=== PATIENT | male | born 1965 | race American Indian/Alaskan Native ===

== ENCOUNTER 2017-03-17 07:12 | Day surgery (SDC) | payer OTHER ==
[~2017-03-17 07:12] MED LIST: Sodium Chloride 0.9% 10 ML Syringe FLUSH PRN
[2017-03-17] MEDS ORDERED: Lidocaine 1% 30 ML SDV ONE (07:39)
[2017-03-17] MEDS ORDERED: Bupivacaine 0.5% 10 ML SDV ONE (07:39)
[2017-03-17] MEDS ORDERED: Sodium Chloride 0.9% 10 ML Syringe FLUSH PRN (08:00)
[2017-03-17] MEDS ORDERED: Lactated Ringers 1,000 ML IV SCH (08:00)
[2017-03-17] MEDS ORDERED: fentaNYL 100 MCG/2 ML SDV ONE ×2 (08:03→08:04)
[2017-03-17] MEDS ORDERED: Succinylcholine 200 MG/10 ML MDV ONE (08:03)
[2017-03-17] MEDS ORDERED: Propofol 200 MG/20 ML SDV ONE (08:03)
[2017-03-17] MEDS ORDERED: Midazolam 1 MG/ML 2 ML SDV ONE (08:04)
[2017-03-17] MEDS ORDERED: Ondansetron 4 MG/2 ML SDV ONE (08:05)
[2017-03-17] MEDS ORDERED: Ketorolac 30 MG/ML SDV ONE (08:05)
[2017-03-17] MEDS ORDERED: Lidocaine 2% 20 ML MDV ONE (08:06)
[2017-03-17] MEDS ORDERED: Glycopyrrolate 0.2 MG/ML 2 ML SDV ONE (08:21)
[2017-03-17] MEDS ORDERED: Lidocaine 1% 30 ML SDV INJECT ONE ×3 (08:35→09:58)
[2017-03-17] MEDS ORDERED: Bupivacaine 0.5% 10 ML SDV INJECT ONE ×3 (08:35→09:58)
[2017-03-17 11:48] VITALS: BP 121/85
--- NOTE | 2017-03-17 12:56 | PCM.OPNOTE ---
- General Post-Op/Procedure Note Date of Surgery/Procedure: 03/17/17 Operative Procedure(s): Right open plantar fasciectomy Pre Op Diagnosis: Left painful plantar fasciitis Post-Op Diagnosis: sarahy Anesthesia Technique: General LMA Primary Surgeon: Madeline Elise Anesthesia Provider: Dre Roberson EBL in mLs: 5 Complications: none Condition: Good Free Text/Narrative:: Intake & Output 03/16/17 03/17/17 03/17/17 22:59 06:59 14:59 Intake Total 825 Balance 825 Pt tolerated procedure well and was transported to pacu with vss and vascular status intact to [facility]. Placed in cam boot due to psoriasis rash on ankle. TT 22 mins.
[2017-03-17] MEDS ORDERED: Propofol 200 MG/20 ML SDV IV ONE (14:52)
[2017-03-17] MEDS ORDERED: Ketorolac 30 MG/ML SDV IVPUSH ONE (14:52)
[2017-03-17] MEDS ORDERED: Ondansetron 4 MG/2 ML SDV IV ONE (14:52)
[2017-03-17] MEDS ORDERED: Midazolam 1 MG/ML 2 ML SDV IV ONE (14:52)
[2017-03-17] MEDS ORDERED: fentaNYL 100 MCG/2 ML SDV IV ONE (14:52)
[2017-03-17] MEDS ORDERED: Glycopyrrolate 0.2 MG/ML 2 ML SDV IV ONE (14:52)
--- NOTE | 2017-03-17 18:54 | OR ---
DATE: 03/17/2017 PREOPERATIVE DIAGNOSIS: Left foot plantar fasciitis. POSTOPERATIVE DIAGNOSIS: Left foot plantar fasciitis. PROCEDURE PERFORMED: Left foot open plantar fasciectomy. ANESTHESIA: LMA with preoperative local block of 10 mL 1:1 mixture of 1% lidocaine plain and 0.5% Marcaine plain. TOURNIQUET TIME: 22 minutes. Pneumatic ankle tourniquet. ESTIMATED BLOOD LOSS: Minimal. SPECIMEN: None. COMPLICATIONS: None. INDICATIONS: Richi is a 52-year-old male, who returns for chronic pain in his left heel. I have seen him multiple times for this issue, I did do an injection back in October for the area which he reports only helped for a couple of weeks and then the pain returned. He is on his feet all day, holding heavy things on cement and working on ladders. He had also done physical therapy, we tried over- the-counter inserts, gel cushions, Medrol Dosepak with no relief. He has also been stretching trying to rest that foot. He has not had any relief for that. His pain is 8/10 at worst. It started last over about a year and a half ago and has been progressively worsening. X-rays of the foot reveals very small bone spur at the plantar heel, no signs of fracture. The patient voiced good understanding of proposed procedure and possible complications, elects to have surgery at this time. DESCRIPTION OF PROCEDURE: The patient was taken to the operating room, lying in supine position. After adequate anesthesia induction as described above, the left foot was prepped and draped in usual sterile fashion. A pneumatic ankle tourniquet was inflated to 225 mmHg. Attention was then directed to the left foot plantar aspect, just distal to the calcaneal fat pad where an approximately 3 cm linear incision was made at this aspect to gain access to the central and medial band of the plantar fascia. Sharp and blunt dissection was performed down to the level of the plantar fascia band. An approximately 1 cm2 section of the band was resected from the foot. It was noted to be severely thickened with scar tissue. Inspection of the site revealed no further tightness of the plantar fascia in this area. The area was then flushed with copious amounts of sterile saline. Deep closure was completed with 3-0 Vicryl, and skin closure was completed with 4-0 nylon. The area was dressed with Xeroform, fluffs, Kerlix, and Webril. He was placed into a Cam boot due to him having psoriasis flare up on his ankle. He will just have to keep that Cam boot on at all times unless he needs to apply some lotion to the ankle. Total tourniquet time was 22 minutes. He tolerated anesthesia and the procedure well, and left to recovery with vital signs stable, in good condition, with vascular status intact to the foot. He was discharged home when he met hospital discharge requirements. [facility] /[id number]
== END 2017-03-17 11:00 | disposition home or self-care (01) ==
LOC: DL.SDS 07:12
PROVIDERS: ATTEND Podiatrist
DX: M72.2 Plantar fascial fibromatosis (principal); R73.03 Prediabetes; I10 Essential (primary) hypertension
CPT/HCPCS: 28060; J7120; J1885; J2250; J2405; J2704; J3010; J3490

== ENCOUNTER 2017-04-28 05:48 | Day surgery (SDC) | payer OTHER ==
[2017-04-28] MEDS ORDERED: Midazolam 1 MG/ML 2 ML SDV ONE (06:15)
[2017-04-28] MEDS ORDERED: fentaNYL 100 MCG/2 ML SDV ONE (06:16)
[2017-04-28] MEDS ORDERED: fentaNYL 100 MCG/2 ML SDV IV ONE ×5 (06:54→15:15)
[2017-04-28] MEDS ORDERED: Midazolam 1 MG/ML 2 ML SDV IV ONE ×7 (06:56→15:15)
[2017-04-28] MEDS ORDERED: Sodium Chloride 0.9% 10 ML Syringe FLUSH PRN (07:00)
[2017-04-28] MEDS ORDERED: Dextrose 5%-0.45% NaCl 1,000 ML IV SCH (07:00)
[2017-04-28 09:30] VITALS: BP 130/82
--- NOTE | 2017-04-28 11:12 | OR ---
DATE: 04/28/2017 PROCEDURE: Total colonoscopy, NBI, and multiple cold snare polypectomies. INSTRUMENT USED: CF-H180AL Olympus video colonoscope. Olympus disposable distal attachment. PREMEDICATIONS: Fentanyl 150 mcg intravenous, Versed 4 mg intravenous. The procedure was done under pulse oximetry, BP recording, and monitor tech. INDICATION: The patient with rectal bleeding. Colonoscopic examination is done for detection of any polypoid lesions and removal, endoscopic hemostasis therapy if needed. Initial rectal exam was unremarkable. Rigid anoscopy was normal. DESCRIPTION OF PROCEDURE: The colonoscope was passed with ease up to the ileocecal area, photographs were taken of the cecum identified by landmarks of appendiceal orifice and double-bulged ileocecal folds. The examination was compromised in quite a few areas due to the presence of adherent solid fecal material that could not be aspirated clear. No bleeding was noted from any of the visualized areas at the commencement of the examination. No stricture. No vascular ectasia. No large isolated ulcerations seen. No evidence of diffuse inflammatory bowel disease in the form of friability, contact bleeding, or ulcerations. Probing the proximal sides of folds and flexures, using adequate distention and clearing of the stool material, withdrawal of the scope was made. In the distal descending colon, 2 polyps were noted, photographs were taken of the larger polyp, 5 mm sized, NBI views were obtained. Cold snare polypectomies were done of the 2 polyps visualized. The tissues were collected and sent for histopathology. No bleeding was noted from any of the visualized areas at the completion of examination. IMPRESSION: Multiple colonic polyps. The patient tolerated the procedure well. [facility] /[id number]
--- NOTE | 2017-04-28 11:23 | LETTER ---
04/28/2017 Yamile Schaffer MD [facility] [address] [place] [address] RE: RICHI EAST : [address] Schaffer: Mr. Richi East had colonoscopic examination done this morning and he tolerated the procedure well. I herewith send a copy of the endoscopy note and photographs for your review. Thank you. Sincerely, [facility] /[id number]
== END 2017-04-28 09:15 | disposition home or self-care (01) ==
LOC: DL.ENDO 05:48
PROVIDERS: ATTEND Internal Medicine Gastroenterology
DX: D12.4 Benign neoplasm of descending colon (principal); I10 Essential (primary) hypertension; E66.09 Other obesity due to excess calories; M96.1 Postlaminectomy syndrome, not elsewhere classified; Z98.890 Other specified postprocedural states; Z79.82 Long term (current) use of aspirin; Z79.899 Other long term (current) drug therapy
CPT/HCPCS: 45385; J2250; J3010; J7042

== ENCOUNTER 2017-05-17 06:58 | Day surgery (SDC) | payer OTHER ==
[~2017-05-17 06:58] MED LIST changes: +Dextrose 5%-0.45% NaCl 1,000 ML IV SCH; +Midazolam 1 MG/ML 2 ML SDV ONE; +fentaNYL 100 MCG/2 ML SDV ONE
[2017-05-17] MEDS ORDERED: fentaNYL 100 MCG/2 ML SDV IV ONE ×5 (08:03→14:43)
[2017-05-17] MEDS ORDERED: Midazolam 1 MG/ML 2 ML SDV IV ONE ×7 (08:05→14:43)
[2017-05-17 10:07] VITALS: BP 134/72
--- NOTE | 2017-05-17 13:43 | OR ---
DATE: 05/17/2017 PROCEDURE: Total colonoscopy. INSTRUMENT USED: CF-H180AL Olympus video colonoscope. PREMEDICATIONS: Fentanyl 150 mcg intravenous, Versed 4 mg intravenous. The procedure was done under pulse oximetry, BP recording, and marketing representative. INDICATION: The patient with previous colonic adenoma and inadequate study before related to large amount of fecal material. Colonoscopic examination is done for detection of any polypoid lesions and removal, endoscopic hemostasis therapy if needed. Initial rectal exam was unremarkable. Rigid anoscopy showed small internal hemorrhoids without bleeding from them. DESCRIPTON OF PROCEDURE: The colonoscope was passed with ease up to the ileocecal area, photographs were taken of the normal-appearing cecum, identified by appendiceal orifice and double-bulged ileocecal folds. No bleeding was noted from any of the visualized areas at the commencement of the examination. No stricture. No vascular ectasia. No large isolated ulceration seen. No evidence of diffuse inflammatory bowel disease in the form of friability, contact bleeding, or ulcerations. No polyp or tumor mass identified. Probing the proximal sides of folds and flexures using adequate distention and clearing of the stool material, withdrawal of the scope was made. Cecum to rectum time over 6 minutes. No bleeding was noted from any of the visualized areas at the completion of examination. IMPRESSION: Internal hemorrhoids. The patient tolerated the procedure well. [facility] /[id number]
--- NOTE | 2017-05-17 14:40 | LETTER ---
05/17/2017 Yamile Schaffer MD [facility] [address] [place] [address] RE: RICHI EAST : [address] Schaffer: Mr. Richi East had colonoscopic examination this morning, and he tolerated the procedure well. I herewith send a copy of the endoscopy note and photographs for your review. Thank you. Sincerely, [facility] /[id number]
== END 2017-05-17 10:00 | disposition home or self-care (01) ==
LOC: DL.ENDO 06:58
PROVIDERS: ATTEND Internal Medicine Gastroenterology
DX: Z12.11 Encounter for screening for malignant neoplasm of colon (principal); K64.8 Other hemorrhoids; Z85.038 Personal history of other malignant neoplasm of large intestine; I10 Essential (primary) hypertension; E66.9 Obesity, unspecified; Z79.82 Long term (current) use of aspirin; Z79.899 Other long term (current) drug therapy; Z98.890 Other specified postprocedural states
CPT/HCPCS: 45378; J2250; J3010; J7042

== ENCOUNTER 2019-03-29 06:45 | Day surgery (SDC) | payer BC, OTHER ==
[~2019-03-29 06:45] MED LIST changes: -Dextrose 5%-0.45% NaCl 1,000 ML IV SCH; +Lactated Ringers 1,000 ML IV SCH; -Midazolam 1 MG/ML 2 ML SDV ONE; -fentaNYL 100 MCG/2 ML SDV ONE
[2019-03-29] MEDS ORDERED: Propofol 200 MG/20 ML SDV IV ONE (06:46)
[2019-03-29] MEDS ORDERED: Ondansetron 4 MG/2 ML SDV IV ONE (06:46)
[2019-03-29] MEDS ORDERED: Dexamethasone 4 MG/ML SDV IV ONE (06:46)
[2019-03-29] MEDS ORDERED: Midazolam 1 MG/ML 2 ML SDV IV ONE (06:46)
[2019-03-29] MEDS ORDERED: Bupivacaine 0.5% 30 ML SDV INJECT ONE ×4 (06:46→08:57)
[2019-03-29] MEDS ORDERED: Lidocaine 1% 30 ML SDV INJECT ONE ×4 (06:46→08:57)
[2019-03-29] MEDS ORDERED: Ketorolac 30 MG/ML SDV IVPUSH ONE (06:46)
[2019-03-29] MEDS ORDERED: fentaNYL 100 MCG/2 ML SDV IV ONE (06:46)
[2019-03-29] MEDS ORDERED: Bupivacaine 0.5% 30 ML SDV ONE (07:39)
[2019-03-29] MEDS ORDERED: Lidocaine 1% 30 ML SDV ONE (07:40)
[2019-03-29] MEDS ORDERED: Acetaminophen/oxyCODONE 325-5 MG Tab PO PRN (09:09)
--- NOTE | 2019-03-29 09:11 | PCM.OPNOTE ---
- General Post-Op/Procedure Note Date of Surgery/Procedure: 03/29/19 Operative Procedure(s): right foot open plantar fasciectomy Pre Op Diagnosis: right foot plantar fasciitis Post-Op Diagnosis: sarahy Anesthesia Technique: Local, MAC Primary Surgeon: Madeline Elise Anesthesia Provider: Bull Muñoz EBL in mLs: 5 Complications: none Condition: Good Free Text/Narrative:: Pt tolerated procedure well and was transported to recovery with vascular status intact to right foot. TT 23 mins. Well padded compression dressing applied, will keep foot in 90 degrees.
[2019-03-29 12:22] VITALS: BP 154/97; PULSE 71
--- NOTE | 2019-03-29 16:00 | OR ---
DATE: 03/29/2019 PREOPERATIVE DIAGNOSIS: Right foot plantar fasciitis. POSTOPERATIVE DIAGNOSIS: Right foot plantar fasciitis. PROCEDURE PERFORMED: Right foot open plantar fasciectomy. ANESTHESIA: Local MAC with preoperative local block of 10 mL of 1:1 mixture of 1% lidocaine plain and 0.5% Marcaine plain. TOURNIQUET TIME: 23 minutes, pneumatic ankle tourniquet. ESTIMATED BLOOD LOSS: Minimal. SPECIMEN: None. COMPLICATIONS: None. INDICATIONS: Richi is a 54-year-old male, who presents with chronic right foot pain. I have done a plantar fascia release on his left foot, that was over 3 years ago now. He is doing well with that foot and has healed. Now, he is having the same issues on his right foot heel area. He has failed conservative treatment options and would like to have the same surgical procedure on that foot. The patient voiced good understanding of proposed procedure and possible complications and elects to have surgery at this time. DESCRIPTION OF PROCEDURE: The patient was taken to the operating room lying in supine position. After adequate anesthesia induction as described above, the right foot was prepped and draped in the usual sterile fashion. A pneumatic ankle tourniquet was inflated to 225 mmHg. Attention was then directed to the proximal instep of the right foot heel area where an approximately 4 cm transverse incision was made to gain access to the medial and central plantar fascia band. Sharp and blunt dissection were performed down to the level of the plantar fascia band insertion site. A 15 blade was used to incise the medial and central plantar fascia band, and an approximately 1 cm2 section was taken out of the plantar fascia band at the medial and central aspect. This was to prevent any regrowth in the area. The plantar fascia band was noted to be severely thickened and diseased tissue. The area was then inspected and no further tightness was noted. The area was then irrigated with copious amounts of sterile saline. Deep closure was completed with 3-0 Vicryl and skin closure was completed with 4-0 nylon. The area was dressed with Xeroform to the incision site, fluffs, Webril, and an Boy wrap. He was then placed into a CAM boot at 90 degrees and instructed not to remove that boot at any time. He tolerated the procedure well and was transported to the recovery room with vital signs stable and vascular status intact as noted by immediate hyperemia to all digits upon deflation of the ankle tourniquet. He was then discharged home once he met hospital discharge requirements. [facility] /[id number]
== END 2019-03-29 11:05 | disposition home or self-care (01) ==
LOC: DL.SDS 06:45
PROVIDERS: ATTEND Podiatrist
DX: M72.2 Plantar fascial fibromatosis (principal); I10 Essential (primary) hypertension; G47.33 Obstructive sleep apnea (adult) (pediatric); L40.9 Psoriasis, unspecified; Z87.891 Personal history of nicotine dependence; Z79.899 Other long term (current) drug therapy
CPT/HCPCS: 28062; J1100; J1885; J2001; J2250; J2405; J2704; J3010; J3490; J7120